=== PATIENT | male | born 1955 | race Caucasian/White ===

== ENCOUNTER 2019-06-29 13:41 | Outpatient (CLI) | payer BC, SELFPAY ==
--- NOTE | ~2019-06-29 | CT_ITS ---
EXAMINATION: CT lung screening DATE: 06/29/2019 14:07 INDICATION: Tobacco dependence TECHNIQUE: Computed tomography (CT) of the chest was performed without intravenous contrast. The dose -length product was 366.59 mGy-cm. Automated exposure control and iterative reconstruction technique were employed. COMPARISON: No prior studies for comparison. FINDINGS: There is bilateral lower lobe atelectasis/scarring. No endobronchial lesions. There is mild emphysema. No pulmonary nodules or masses. No significant pleural or pericardial effusion. Heart siz e is normal. No thoracic lymphadenopathy. There is atherosclerosis. Mild thoracic spondylosis. There is diffuse idiopathic skeletal hyperostosis (DISH) of the thoracic spine. IMPRESSION: 1. Lung-RADS category 1: Negative. Continue annual screening with noncontrast low-dose chest CT in 12 months. 2: Bilateral lower lobe atelectasis/scarring. 3: Mild emphysema. Reviewed, dictated and finalized at location A. IC DESIGNER IMPRESSION: 1. Lung-RADS category 1: Negative. Continue annual screening with noncontrast l ow-dose chest CT in 12 months. 2: Bilateral lower lobe atelectasis/scarring. 3: Mild emphysema.
== END 2019-06-29 13:42 | disposition home or self-care (01) ==
PROVIDERS: PCP Nurse Practitioner Adult Health; Visit Provider Nurse Practitioner Family
DX: J98.11 Atelectasis (principal); J43.9 Emphysema, unspecified; Z87.891 Personal history of nicotine dependence
CPT/HCPCS: G0297

== ENCOUNTER 2022-01-05 22:42 | Observation (INO) | payer MEDICARE, SELFPAY ==
[2022-01-05] VITALS (9 sets, daily range): BP systolic 179–184; BP diastolic 89–125; PULSE 76–84; RESP 17–24; TEMP 36.9; O2SAT 96–98
--- NOTE | ~2022-01-05 | CT_ITS ---
EXAMINATION: CTA chest PE protocol DATE: 01/06/2022 02:03 INDICATION: Acute hypoxia, tachypnea TECHNIQUE: Computed tomography angiography (CTA) of the chest was performed with 100 mL Omnipaque-350 intravenous contrast timed to evaluate the pulmonary arteries. Coronal maximum intensity projection 3D-reconstructions were created by the technologist. The dose-length product (DLP) was 763.69 mGy-cm. Automated exposure control and iterative reconstruction technique were employed. COMPARISON: 06/29/2019 FINDINGS: The pulmonary arteries are well-opacified. No pulmonary embolism is identified. There is mi ld emphysema. The lungs are free of acute opacities. No pleural effusion or pneumothorax. No patholog ically enlarged thoracic lymph nodes are identified. The heart size is normal. Healed right-sided rib fractures are noted. There is moderate thoracic spondylosis. IMPRESSION: 1. No pulmonary embolism or acute cardiopulmonary abnormality. Reviewed, dictated and finalized at location A.
--- NOTE | ~2022-01-05 | XR_ITS ---
EXAMINATION: XR chest 1V portable INDICATION: Shortness of breath TECHNIQUE: Portable AP chest at 0053 hours COMPARISON: None available FINDINGS: The lungs are free of acute opacities. No pleural effusion or pneumothorax. The cardiomedia stinal silhouette is normal. IMPRESSION: 1. No acute cardiopulmonary abnormality. Reviewed, dictated and finalized at location A.
--- NOTE | 2022-01-05 23:29 | ECG_ITS ---
Measurements Intervals [place] Rate: 78 P: 31 MI: 152 QRS: -3 QRSD: 103 T: 63 QT: 379 QTc: 434 Interpretive Statements SINUS RHYTHM WITH OCCASIONAL VENTRICULAR PREMATURE COMPLEXES ABNORMAL ECG NO PREVIOUS ECG AVAILABLE FOR COMPARISON Electronically Signed On 01-06-2022 10:05:44 CDT by Mitch Gaona M.D.
[2022-01-06] VITALS (36 sets, daily range): BP systolic 154–228; BP diastolic 65–112; PULSE 67–86; RESP 16–24; TEMP 35.9–36.6; O2SAT 91–99; BMI 38.6
--- NOTE | 2022-01-06 | ECHO_ITS ---
Patient Info Name: Michael Trammell Age: 66 years : 1955 Gender: Male Ht: 67 in Wt: 246 lbs BSA: 2.35 m2 HR: 78 bpm BP: 228 / 101 mmHg Heart Rhythm: Sinus Rhythm Technical Quality: Fair Exam Date: 01/06/2022 9:11 AM Exam Location: [facility] Pulmonary Exam Room: 232 Patient Status: Outpatient Admit Date: 01/06/2022 Staff Ordering Physician: Vincent Lind MD Silversmith Apprentice: Asha Valente RDCS Attending Provider: Vincent Lind MD Exam Type: CA echo dop color flow w con Study Info Indications - CHF Complete two-dimensional, color flow and Doppler transthoracic echocardiogram is performed with contrast to opacify the left ventricle and to improve the deliniation of the left ventricle endocardial borders. Contrast/Agitated Saline Contrast/Ag. Saline: Definity Amount: 2.00 ml Administered By: Asha Valente [facility] Existing IV Access: Yes IV Access Condition: patent with no signs of infiltration Summary 1. Left ventricular chamber dimension is mildly enlarged. 2. Left ventricular systolic function is normal, estimated at 60-65%. 3. There is mildly increased left ventricular wall thickness. 4. The left ventricular diastolic function is grade I diastolic dysfunction. 5. Left atrial chamber dimension is mildly enlarged. 6. There is mild tricuspid valve regurgitation. 7. Mild pulmonary hypertension, estimated pulmonary arterial systolic pressure is 35 mmHg. 8. There is mild pulmonic regurgitation. Left Ventricle Left ventricular chamber dimension is mildly enlarged. Left ventricular systolic function is normal, estimated at 60-65%. There is mildly increased left ventricular wall thickness. The left ventricular diastolic function is grade I diastolic dysfunction. Right Ventricle Right ventricular chamber dimension is normal. Right ventricular systolic function is normal. Left Atria Left atrial chamber dimension is mildly enlarged. Right Atria Right atrial chamber dimension is normal. Atrial Septum Intact interatrial septum visualized by color flow imaging. Aortic Valve The aortic valve is probable trileaflet. There is mild aortic valve sclerosis. There is no aortic valve stenosis. There is trace aortic valve regurgitation. Pulmonic Valve The pulmonic valve is normal. There is no pulmonic valve stenosis. There is mild pulmonic regurgitation. Mitral Valve The mitral valve has normal leaflets. There is no mitral valve stenosis. There is trace mitral valve regurgitation. Tricuspid Valve The tricuspid valve leaflets are normal. There is no significant tricuspid valve stenosis. There is mild tricuspid valve regurgitation. Mild pulmonary hypertension, estimated pulmonary arterial systolic pressure is 35 mmHg. Pericardium/Pleural The pericardium appears normal. There is no pericardial effusion. Inferior Vena Cava Normal inferior vena cava with >50% collapse upon inspiration consistent with normal right atrial pressure, 10 mmHg. Aorta The aortic root size at the sinus of Valsalva is normal. Left Ventricular Outflow Tract Name Value Normal LVOT 2D LVOT Diameter 2.09 cm
[2022-01-06 00:02] LABS: Basophils Absolute Auto 0.1 K/mm3 (0.0-0.1); Basophils Percent Auto 0.7 % (0.2-1.2); Eosinophils Absolute Auto 0.1 K/mm3 (0-0.3); Eosinophils Percent Auto 1.2 % (0-4.4); Hematocrit 46.4 % (42.0-52.0); Hemoglobin 14.6 g/dL (14.0-18.0); Immature Granulocyte Absolute 0.03 K/mm3 (0.00-0.031); Immature Granulocyte Percent A 0.3 % (0-0.5); Lymphocytes Absolute Auto 2.16 K/mm3 (0.9-3.2); Lymphocytes Percent Auto 20.2 % (18.3-44.2); Mean Corpuscular HGB Conc 31.5 g/dl (32-36); Mean Corpuscular Hemoglobin 29.3 pg (26-34); Mean Platelet Volume 10.6 fl (7.4-10.4); Monocytes Absolute Auto 0.9 K/mm3 (0.1-0.6); Neutrophils Absolute Auto 7.4 K/mm3 (1.3-6.7); Neutrophils Percent Auto 69.6 % (45.5-73.1); Platelet Count Result 272 k/mm3 (150-375); Red Blood Count 4.99 M/mm3 (4.6-6.20); Red Cell Distribution Width 14.5 % (11.5-14.5); White Blood Count 10.7 K/mm3 (4.5-10.0)
[2022-01-06 00:10] LABS: Alanine Aminotransferase 17 U/L (6-50); Albumin Level 4.2 g/dL (3.5-5.1); Alkaline Phosphatase 125 U/L (38-126); Anion Gap 6 mmol/L (8-16); Aspartate Amino Transferase 42 U/L (17-59); Bilirubin,Total 0.3 mg/dL (0.2-1.3); Blood Urea Nitrogen 28 mg/dL (9-20); Calcium 9.3 mg/dL (8.4-10.2); Carbon Dioxide 34 mmol/L (22-30); Chloride 99 mmol/L (98-107); Estimated CRCL calculation 57 ml/min; Estimated Glomerular Filt Rate 51; Glucose 184 mg/dL (65-110); Potassium 4.1 mmol/L (3.4-5.0); Sodium 139 mmol/L (137-145)
[2022-01-06 00:16] LABS: INR 0.9; Prothrombin Time 11.7 Seconds (11.1-14.7)
[2022-01-06 00:17] LABS: Partial Thromboplastin Time 29.8 SECONDS (22.3-36.8)
[2022-01-06 00:22] LABS: NT Pro B Type Natriuretic Pept 1010 pg/mL (5-100); Troponin I 0.021 ng/mL (0.000-0.034)
[2022-01-06 00:36] LABS: Appearance Urine Clear (Clear); Bilirubin Urine Negative (Negative); Blood Urine Trace-lysed (Negative); Color Urine Yellow (Yellow); Glucose Urine UA Trace mg/dL (Negative); Ketones Urine Negative (Negative); Leukocyte Esterase Ur Negative LEU/UL (Negative); Nitrate Urine Negative (Negative); Protein Urine 3+ mg/dL (Negative); Urobilinogen Urine 0.2 mg/dL (<2.0)
[2022-01-06 00:47] LABS: Bacteria Urine Trace /hpf; WBC Urine 0-3 /hpf
--- NOTE | 2022-01-06 00:59 | ED.SOB ---
HPI - SOB/Dyspnea General Chief Complaint: Shortness of Breath/Dyspnea Stated Complaint: SOB, HTN Time Seen by Provider: 01/05/22 23:25 Source: patient and EMS Mode of arrival: EMS Limitations: no limitations History of Present Illness HPI Narrative: Patient is a 66-year-old male who presents the ED via EMS with report of shortness of breath. Patient reports he saw his PCP on Saturday for his blood pressures being elevated. He takes carvedilol 12.5 mg twice daily as well as losartan/HCTZ. He also takes Lasix 20 mg daily. He was advised to double his carvedilol dosage today. He has been checking his blood pressures at home and notes they have been elevated up to the 190s systolic. Today, he reports he developed sudden onset of increased difficulty breathing. Worse with any type of exertion. He states he can usually walk around his house just fine without feeling short of breath, but could barely even walk to the bathroom today without feeling short of breath. He had to use his girlfriends home oxygen to provide relief. Patient denies any chest pain, recent cough or cold symptoms, fever, history of heart failure or CAD. Patient was given nebulizer treatment in route to the ED. Related Data Home Medications Medication Instructions Recorded Confirmed albuterol sulfate 90 mcg/actuation 1 inhalation inhalation Q4H 06/09/19 06/09/19 aerosol inhaler (ProAir HFA) aspirin 81 mg tablet,delayed 81 mg PO DAILY 06/09/19 06/09/19 release (Adult Aspirin Regimen) carvedilol 12.5 mg tablet (Coreg) 12.5 mg PO Q12H 06/09/19 06/09/19 furosemide 20 mg tablet (Lasix) 20 mg PO QAM 06/09/19 06/09/19 glimepiride 2 mg tablet (Amaryl) 2 mg PO QAM 06/09/19 06/09/19 insulin lispro 100 unit/mL 1 unit subcut ONCE 06/09/19 06/09/19 subcutaneous pen (Admelog SoloStar U-100 Insulin lispro) losartan 100 1 tablet PO DAILY 06/09/19 06/09/19 mg-hydrochlorothiazide 25 mg tablet (Hyzaar) metformin 1,000 mg tablet 1,000 mg PO DAILY 06/09/19 06/09/19 (Glucophage) mometasone-formoterol HFA 100 2 puff inhalation Q12H 06/09/19 06/09/19 mcg-5 mcg/actuation aerosol inhaler (Dulera) omega-3 fatty acids 1,000 mg 1,000 mg PO DAILY 06/09/19 06/09/19 capsule (Fish Oil Concentrate) pioglitazone 45 mg tablet (Actos) 45 mg PO DAILY 06/09/19 06/09/19 simvastatin 40 mg tablet (Zocor) 40 mg PO DAILY 06/09/19 06/09/19 sitagliptin 100 mg tablet (Januvia) 100 mg PO DAILY 06/09/19 06/09/19 Allergies Allergy/AdvReac Type Severity Reaction Status Date / Time No Known Allergies Allergy Verified 01/05/22 22:49 Review of Systems Review of Systems: CONSTITUTIONAL: Denies fever, chills, or sweats. ENT: Denies rhinorrhea, congestion, sore throat. CARDIOVASCULAR: Denies chest pain, palpitations, or edema. RESPIRATORY: Reports dyspnea, VILLA. Denies cough. GASTROINTESTINAL: Denies abdominal pain, nausea, vomiting, or diarrhea. All systems reviewed & are unremarkable except as noted in HPI and below PMFSH Past Medical History Medical History Diabetes 1.5, managed as type 2 Dyslipidemia Essential hypertension LIAM (obstructive sleep apnea) Surgical History Surgical History No pertinent past surgical history Family History Family History (System 07/03/19 @ 14:08 by Janice Patel) Mother Family history of malignant neoplasm, Onset Age: 37 Father Family history of pulmonary embolism, Onset Age: 42 Social History Social History Smoking status: Former smoker Exam Narrative: GENERAL: Well appearing, obese, non-toxic, in no acute distress. HEAD: Normocephalic, atraumatic. NECK: Supple. No adenopathy, no masses. RESPIRATORY: Airway patent, respirations mildly labored. Clear to auscultation bilaterally, no rales, rhonchi, wheezing. Mild d
[2022-01-06 01:05] LABS: Add Urine Microscopic? YES
[2022-01-06 01:11] LABS: SARS-CoV-2 RNA PCR Negative
[2022-01-06 03:25] LABS: Troponin I 0.085 ng/mL (0.000-0.034)
--- NOTE | 2022-01-06 05:02 | PC.NURSE ---
This patient, Michael Trammell, was admitted to IMU Room 232-01. Patient/family oriented to hospital policies and general routines including ID bracelet, bed and alarms, visiting hours, pain management, procedures, bathroom and other care routines, personal items, smoking policy, room service/diet, and visiting hours. Information on how to activate the Rapid Response Team has been discussed. Patient/Family are encouraged to report perceived risks to care and to ask questions if they do not understand what they are told or what they should do.
[2022-01-06] MEDS: hydrALAZINE HCL 20 MG/ML VIAL 10 MG IV PUSH (06:30)
[2022-01-06 06:39] LABS: Troponin I 0.092 ng/mL (0.000-0.034)
[2022-01-06 07:45] LABS: Glucose Point of Care 196 mg/dl (65-105)
--- NOTE | 2022-01-06 08:11 | PM.IMHP ---
H&P: HPI History of Present Illness Date/Time: 01/06/22 08:11 Chief Complaint: shortness of breath Narrative: this is a 66-year-old male who presents to the ED via EMS with shortness of breath. He states that he went to see his PCP last week where he was found to have elevated blood pressure. He had double the dose of carvedilol since then however the blood pressure has been elevated even with it. Yesterday he was felt surgeon onset of difficulty breathing which worsen with exertion and came to the ED for evaluation. He reports he was wheezing some but no change in cough or quality of consistency of his sputum. He denies any increased leg swelling. He was unable to even walk to the bathroom without getting short of breath. He also used his girlfriend's home oxygen to get some relief. He denies any chest pain. Denies any fever. Denies any nausea or vomiting. He was given nebulizer treatment in route to the ED. He was noted to be hypertensive Gruen arrival to the ED and was also hypoxic at 88% on room air at rest. He was placed on oxygen supplementation via nasal cannula. A chest x-ray was negative and CTA was done which came back negative for any PE. His empirically suggestive of congestive heart failure and pulmonary vascular congestion and hence was admitted for further evaluation and management. he does have underlying COPD that he see pulmonary for. Review of Systems Review of Systems: - CONSTITUTIONAL: Denies weight loss, fever and chills. - HEENT: Denies changes in vision and hearing - RESPIRATORY: Reports SOB and denies cough. - CV: Denies palpitations and CP. - GI: Denies abdominal pain, nausea, vomiting and diarrhea. - : Denies dysuria and urinary frequency. - MSK: Denies myalgia and joint pain. - SKIN: Denies rash and pruritus. - NEUROLOGICAL: Denies headache and syncope. - PSYCHIATRIC: Denies recent changes in mood. Denies anxiety and depression. [facility] Past Medical History Medical History Diabetes 1.5, managed as type 2 Dyslipidemia Essential hypertension LIAM (obstructive sleep apnea) Surgical History Surgical History No pertinent past surgical history Family History Family History Mother Family history of malignant neoplasm, Onset Age: 37 Father Family history of pulmonary embolism, Onset Age: 42 Social History Social History Smoking packs per day: 1.5 Smoking cigarettes per day: 30.0 Years smoked: 20 Smoking pack-years: 30.00 Smoking status: Former smoker Tobacco type: cigarettes Second hand tobacco smoke exposure: No Alcohol intake: current Drinks per week: 12 Substance use: current Substance use type: marijuana Last use: 01/03/22 Spiritual care concerns: No Meds Home Medications and Allergies Home Medications Medication Instructions Recorded Confirmed Type albuterol sulfate 90 mcg/actuation 1 inhalation inhalation Q4H PRN 06/09/19 01/06/22 History aerosol inhaler (ProAir HFA) Shortness Of Breath Or Wheezing aspirin 81 mg tablet,delayed 81 mg PO DAILY 06/09/19 01/06/22 History release (Adult Aspirin Regimen) carvedilol 12.5 mg tablet (Coreg) 12.5 mg PO Q12H 06/09/19 01/06/22 History furosemide 20 mg tablet (Lasix) 20 mg PO QAM 06/09/19 01/06/22 History losartan 100 1 tablet PO DAILY 06/09/19 01/06/22 History mg-hydrochlorothiazide 25 mg tablet (Hyzaar) metformin 1,000 mg tablet 1,000 mg PO BID 06/09/19 01/06/22 History (Glucophage) omega-3 fatty acids 1,000 mg 1,000 mg PO DAILY 06/09/19 01/06/22 History capsule (Fish Oil Concentrate) simvastatin 40 mg tablet (Zocor) 40 mg PO DAILY 06/09/19 01/06/22 History buspirone 5 mg tablet 5 mg PO TID 01/06/22 01/06/22 Hi
[2022-01-06] MEDS: ASPIRIN 81 MG CHEWABLE TABLET 324 MG PO (08:48)
[2022-01-06] MEDS: FUROSEMIDE INJ 40 MG/4 ML VIAL 60 MG IV PUSH (08:49)
[2022-01-06] MEDS: PERFLUTREN LIPID MICROSPHERES 1.5 ML VIAL DILUTED TO 10 ML TOTAL VOLUME IV PUSH (09:00)
[2022-01-06 09:39] LABS: Troponin I 0.069 ng/mL (0.000-0.034)
[2022-01-06] MEDS: carvediloL 12.5 MG TABLET PO (10:38)
[2022-01-06] MEDS: busPIRone HCL 5 MG TABLET PO (10:39)
[2022-01-06] MEDS: OMEGA 3 POLYUNSAT FATTY ACIDS 1 GM CAP PO (10:39)
[2022-01-06] MEDS: LORATADINE 10 MG TABLET PO (10:39)
[2022-01-06] MEDS: CITALOPRAM HYDROBROMIDE 10 MG TABLET PO (10:40)
[2022-01-06] MEDS: POTASSIUM CHLORIDE 10 MEQ TABLET.ER PO (10:40)
[2022-01-06] MEDS: ENOXAPARIN 40 MG/0.4 ML SYRINGE SUB-Q (10:41)
[2022-01-06] MEDS: hydroCHLOROthiazide 25 MG TABLET PO (10:43)
[2022-01-06] MEDS: LOSARTAN POTASSIUM 100 MG TABLET PO (10:43)
[2022-01-06 11:35] LABS: Glucose Point of Care 242 mg/dl (65-105)
[2022-01-06] MEDS: INSULIN GLARGINE (*BKC) 100 UNITS/ML 30 UNITS SUB-Q ×2 (12:24→20:49)
[2022-01-06] MEDS: ALBUTEROL SULFATE NEB 2.5 MG/3 ML INH INHALATION ×2 (13:38→20:25)
[2022-01-06] MEDS: IPRATROPIUM BR 0.02% INH SOLN 0.5 MG/2.5 ML VIAL INHALATION ×2 (13:38→20:25)
[2022-01-06] MEDS: methylPREDNISolone SOD SUCC 125 MG VIAL 40 MG IV PUSH ×2 (14:44→22:09)
--- NOTE | 2022-01-06 16:21 | PM.CNCAR ---
Assessment and Plan Assessment and plan (1) Elevated troponin: Code(s): R77.8 - Other specified abnormalities of plasma proteins Status: Acute Assessment and Plan: Likely related to marked hypertension. Unlikely from an ACS from plaque rupture. Eventual ischemic evaluation though it is recommended (2) Acute exacerbation of CHF (congestive heart failure): Qualifiers: Heart failure type: diastolic Qualified Code(s): I50.33 - Acute on chronic diastolic (congestive) heart failure Code(s): I50.9 - Heart failure, unspecified Status: Acute Assessment and Plan: Likely from marked hypertension and hypertensive crisis. 2D echocardiogram with Doppler be ordered and reviewed. Will increase his carvedilol to 25 mg p.o. b.i.d.. Continue his other regimen. If need be, could add spironolactone if renal function will tolerate. Depending on echocardiogram, could also consider adding amlodipine. (3) Acute respiratory failure with hypoxia: Code(s): J96.01 - Acute respiratory failure with hypoxia Status: Acute Assessment and Plan: Related to marked hypertension. Improved with furosemide (4) Hypertensive urgency: Code(s): I16.0 - Hypertensive urgency Status: Acute Assessment and Plan: As above. Will increase carvedilol. Continue other regimen. (5) LIAM (obstructive sleep apnea): Code(s): G47.33 - Obstructive sleep apnea (adult) (pediatric) Status: Acute Assessment and Plan: Needs treated as this may also be an etiology of his high blood pressure (6) Essential hypertension: Code(s): I10 - Essential (primary) hypertension Status: Acute Assessment and Plan: Uncontrolled with plan as above (7) Dyslipidemia: Code(s): E78.5 - Hyperlipidemia, unspecified Status: Acute (8) Diabetes 1.5, managed as type 2: Code(s): E13.9 - Other specified diabetes mellitus without complications Status: Acute Assessment and Plan: Per hospitalist (9) Former smoker: Code(s): Z87.891 - Personal history of nicotine dependence Status: Acute History of Present Illness History of Present Illness Consult date/time: 01/06/22 16:21 Requesting physician: Vincent Lind MD Consult reason: Other (Elevated troponin, CHF) Reason For Visit: Acute respiratory failurew with hypoxia Narrative: Reason for consultation: Elevated troponin, CHF Requesting provider: Dr. Lind Date of service 01/06/2022 History patient is a 66-year-old male who has been dealing with some high blood pressure. He had a stress test in 2019 which was normal. Echocardiogram 2019 showed ejection fraction 60 65% with mild LVH and mild left ventricular enlargement. He does have high blood pressure which has been difficult to control as of late. He talk to his primary care provider who did increase his carvedilol to 25 mg p.o. b.i.d. but his blood pressure was still elevated. Yesterday he started developed severe onset of acute shortness of breath. It progressed to the point that he came to the hospital. Blood pressure peaked at 228/112. His oxygen levels were 88% on room air. He was started on nasal cannula. CT scan of chest was negative and CT angiogram did not reveal any pulmonary embolism. BNP was mildly elevated at a little over 1000. Troponins were negative and slightly trended positive. Cardiology consultation was requested further evaluation. Patient denies any chest pain, syncope, presyncope, paroxysmal nocturnal dyspnea, orthopnea, edema or palpitations. Review of Systems Review of Systems: All systems reviewed & are unremarkable except as noted in HPI and below Constitutional: Constitutional: Denies body ache(s) Eyes: Eyes: Denies blurry vision ENT: Reports Normal hearing present Cardiovascular: Cardiovascular: Denies chest pain Respiratory: Respiratory: Reports dyspnea and Reports dyspnea on exertio
[2022-01-06 16:24] LABS: Glucose Point of Care 220 mg/dl (65-105)
[2022-01-06 20:06] LABS: Glucose Point of Care 353 mg/dl (65-105)
[2022-01-06] MEDS: FLUTICASONE/SALMETEROL 115-21 MCG INHALER 1 PUFF 2 PUFF INHALATION (20:27)
[2022-01-06] MEDS: SIMVASTATIN 20 MG TABLET 40 MG PO ×2 (20:49→21:01)
[2022-01-06] MEDS: carvediloL 25 MG TABLET PO (20:49)
[2022-01-06 22:22] LABS: Glucose Point of Care 323 mg/dl (65-105)
[2022-01-06] MEDS: INSULIN ASPART (*BKC) 100 UNITS/ML 6 UNITS SUB-Q (22:50)
[2022-01-07] VITALS (22 sets, daily range): BP systolic 146–210; BP diastolic 63–85; PULSE 70–87; RESP 16–22; TEMP 36.4–36.8; O2SAT 94–96
[2022-01-07] MEDS: ALBUTEROL SULFATE NEB 2.5 MG/3 ML INH INHALATION ×4 (03:20→20:35)
[2022-01-07] MEDS: hydrALAZINE HCL 20 MG/ML VIAL 10 MG IV PUSH ×2 (04:40→21:50)
[2022-01-07 04:42] LABS: Basophils Percent Auto 0.2 % (0.2-1.2); Hematocrit 46.3 % (42.0-52.0); Hemoglobin 14.9 g/dL (14.0-18.0); Immature Granulocyte Absolute 0.04 K/mm3 (0.00-0.031); Immature Granulocyte Percent A 0.4 % (0-0.5); Lymphocytes Absolute Auto 1.18 K/mm3 (0.9-3.2); Lymphocytes Percent Auto 12.2 % (18.3-44.2); Mean Corpuscular HGB Conc 32.2 g/dl (32-36); Mean Corpuscular Hemoglobin 29.1 pg (26-34); Mean Corpuscular Volume 90.4 fl (80-100); Mean Platelet Volume 10.3 fl (7.4-10.4); Monocytes Absolute Auto 0.1 K/mm3 (0.1-0.6); Monocytes Percent Auto 1.1 % (2.6-8.5); Neutrophils Absolute Auto 8.3 K/mm3 (1.3-6.7); Neutrophils Percent Auto 86.1 % (45.5-73.1); Platelet Count Result 268 k/mm3 (150-375); Red Blood Count 5.12 M/mm3 (4.6-6.20); Red Cell Distribution Width 14.1 % (11.5-14.5); White Blood Count 9.7 K/mm3 (4.5-10.0)
[2022-01-07 04:46] LABS: Glucose Point of Care 237 mg/dl (65-105)
[2022-01-07 05:06] LABS: Alanine Aminotransferase 14 U/L (6-50); Albumin Level 3.7 g/dL (3.5-5.1); Alkaline Phosphatase 116 U/L (38-126); Anion Gap 9 mmol/L (8-16); Aspartate Amino Transferase 29 U/L (17-59); Bilirubin,Total 0.4 mg/dL (0.2-1.3); Blood Urea Nitrogen 31 mg/dL (9-20); Carbon Dioxide 31 mmol/L (22-30); Chloride 98 mmol/L (98-107); Estimated CRCL calculation 49 ml/min; Estimated Glomerular Filt Rate 44; Glucose 240 mg/dL (65-110); Magnesium 2.1 mg/dL (1.6-2.3); Potassium 4.4 mmol/L (3.4-5.0); Sodium 138 mmol/L (137-145)
[2022-01-07] MEDS: methylPREDNISolone SOD SUCC 125 MG VIAL 40 MG IV PUSH (05:27)
[2022-01-07] MEDS: IPRATROPIUM BR 0.02% INH SOLN 0.5 MG/2.5 ML VIAL INHALATION ×3 (07:26→20:35)
[2022-01-07] MEDS: FLUTICASONE/SALMETEROL 115-21 MCG INHALER 1 PUFF 2 PUFF INHALATION ×2 (07:26→20:35)
[2022-01-07 08:21] LABS: Glucose Point of Care 291 mg/dl (65-105)
[2022-01-07] MEDS: busPIRone HCL 5 MG TABLET PO (08:38)
[2022-01-07] MEDS: OMEGA 3 POLYUNSAT FATTY ACIDS 1 GM CAP PO (08:38)
[2022-01-07] MEDS: LORATADINE 10 MG TABLET PO (08:39)
[2022-01-07] MEDS: POTASSIUM CHLORIDE 10 MEQ TABLET.ER PO (08:39)
[2022-01-07] MEDS: carvediloL 25 MG TABLET PO ×2 (08:40→21:49)
[2022-01-07] MEDS: CITALOPRAM HYDROBROMIDE 10 MG TABLET PO (08:40)
[2022-01-07] MEDS: LOSARTAN POTASSIUM 100 MG TABLET PO (08:41)
[2022-01-07] MEDS: ENOXAPARIN 40 MG/0.4 ML SYRINGE SUB-Q (08:42)
[2022-01-07] MEDS: hydroCHLOROthiazide 25 MG TABLET PO (08:42)
[2022-01-07] MEDS: INSULIN GLARGINE (*BKC) 100 UNITS/ML 30 UNITS SUB-Q ×2 (08:46→17:12)
[2022-01-07] MEDS: INSULIN ASPART (*BKC) 100 UNITS/ML SUB-Q ×3 (08:48→17:12)
--- NOTE | 2022-01-07 10:04 | PM.PNCARD ---
Progress Note: A&P Assessment and Plan (1) Elevated troponin: Code(s): R77.8 - Other specified abnormalities of plasma proteins Status: Acute Assessment and Plan: Likely related to marked hypertension. Unlikely from an ACS from plaque rupture. Eventual ischemic evaluation though is recommended (2) Acute exacerbation of CHF (congestive heart failure): Qualifiers: Heart failure type: diastolic Qualified Code(s): I50.33 - Acute on chronic diastolic (congestive) heart failure Code(s): I50.9 - Heart failure, unspecified Status: Acute Assessment and Plan: Likely from marked hypertension and hypertensive crisis. (3) Acute respiratory failure with hypoxia: Code(s): J96.01 - Acute respiratory failure with hypoxia Status: Acute Assessment and Plan: Related to marked hypertension. Improved (4) Hypertensive urgency: Code(s): I16.0 - Hypertensive urgency Status: Acute Assessment and Plan: As above. Continue current regimen but will add amlodipine 5 mg daily and up titrate as needed (5) LIAM (obstructive sleep apnea): Code(s): G47.33 - Obstructive sleep apnea (adult) (pediatric) Status: Acute Assessment and Plan: Needs treated as this may also be an etiology of his high blood pressure (6) Essential hypertension: Code(s): I10 - Essential (primary) hypertension Status: Acute Assessment and Plan: Uncontrolled with plan as above (7) Dyslipidemia: Code(s): E78.5 - Hyperlipidemia, unspecified Status: Acute (8) Diabetes 1.5, managed as type 2: Code(s): E13.9 - Other specified diabetes mellitus without complications Status: Acute Assessment and Plan: Per hospitalist (9) Former smoker: Code(s): Z87.891 - Personal history of nicotine dependence Status: Acute Subjective Date/time seen: 01/07/22 10:04 Interval history: 66-year-old admitted for hypertensive crisis and shortness of breath/heart failure which is diastolic and acute Date of service 01/07/2022: Feels much better today. No chest pain, shortness of breath, syncope Review of Systems Review of Systems: All systems reviewed & are unremarkable except as noted in HPI and below Constitutional: Constitutional: Denies body ache(s) and Denies excessive sweating Eyes: Eyes: Denies blurry vision ENT: Reports Normal hearing present Cardiovascular: Cardiovascular: Denies chest pain, Reports dyspnea and Reports dyspnea on exertion Respiratory: Respiratory: Reports dyspnea and Reports dyspnea on exertion Gastrointestinal: Gastrointestinal: Denies abdominal pain Genitourinary: Genitourinary: Denies hematuria Musculoskeletal: Musculoskeletal: Denies myalgias Integumentary/Breasts: Skin/Breast: Denies dry skin Neurologic: Reports Normal hearing present, Denies Abnormal speech present and Denies confusion Psychiatric: Psychiatric: Denies anxiety and Denies confusion Endocrine: Endocrine: Denies excessive sweating Hematologic/Lymphatic: Hematologic/Lymphatic: Denies easy bleeding Allergic/Immunologic: Allergic/Immunologic: Denies GI upset with certain foods Exam Narrative: Awake alert oriented appears stated age Const: General: comfortable and no acute distress; No confusion Orientation/consciousness: No confusion HENMT: Ears: TM's normal bilaterally General nose exam: Normal nares present Eyes: Sclera: sclerae normal EOM: EOMs intact bilaterally Neck: Neck: supple Thyroid: thyroid normal Carotids: no bruits Chest: Other: No reproducible chest wall pain to palpation Resp: Effort & Inspection: normal respiratory effort Auscultation: clear to auscultation bilaterally Cardio: Rate: regular rate Rhythm: regular rhythm Heart sounds: no murmurs GI: Inspection: non-distended Auscultation: normal bowel sounds Skin: General skin exam: normal color Neuro: General: No gait no
--- NOTE | 2022-01-07 12:05 | PM.IMPN ---
Progress Note: A&P Assessment and Plan (1) Acute respiratory failure with hypoxia: Code(s): J96.01 - Acute respiratory failure with hypoxia Status: Acute (2) Acute exacerbation of CHF (congestive heart failure): Qualifiers: Heart failure type: diastolic Qualified Code(s): I50.33 - Acute on chronic diastolic (congestive) heart failure Code(s): I50.9 - Heart failure, unspecified Status: Acute (3) Essential hypertension: Code(s): I10 - Essential (primary) hypertension Status: Acute (4) Dyslipidemia: Code(s): E78.5 - Hyperlipidemia, unspecified Status: Acute (5) Diabetes 1.5, managed as type 2: Code(s): E13.9 - Other specified diabetes mellitus without complications Status: Acute (6) Hypertensive urgency: Code(s): I16.0 - Hypertensive urgency Status: Acute (7) LIAM (obstructive sleep apnea): Code(s): G47.33 - Obstructive sleep apnea (adult) (pediatric) Status: Acute (8) COPD exacerbation: Code(s): J44.1 - Chronic obstructive pulmonary disease with (acute) exacerbation Status: Acute Plan 66-year-old male presented via EMS with worsening shortness of breath on exertion and elevated blood pressure. # shortness of breath: Chest x-ray negative CTA is negative for PE. He is hypertensive which is likely the reason for his shortness of breath. He also possible COPD exacerbation as 1 of the other etiology. He did improve with nebulizer treatment in route coming to the ED. CHF exacerbation another possibility. Continue treatment for COPD exacerbation. Creatinine bumped up. Unlikely she has CHF exacerbation # hypertensive urgency 181/115 upon arrival. IV hydralazine p.r.n.. Resume his usual home medication. Received a dose of Lasix 01/06/2022. Blood pressure fluctuating but improved. Cardiology added on amlodipine. Also on losartan hydrochlorothiazide carvedilol at home. #Acute hypoxic respiratory failure oxygen saturation dropped to 88% on room air at rest. Continue nasal cannula oxygen supplementation. No prior history of CHF but takes Lasix 20 mg daily. BNP was 1010. Echo from 2019 with ejection fraction 60-65% but diastolic dysfunction present. EKG with no ischemic changes. Initial troponin is negative. COVID is negative. Chest x-ray reported as no acute cardiopulmonary abnormality.. CTA done negative for PE. BNP was elevated. Troponin 2nd set came back elevated. Likely related to hypertensive urgency rather than plaque rupture. Reports no chest pain. Cardiology has been consulted for further evaluation on this. Will get an echocardiogram. Will give aspirin 325 mg and continue on aspirin 81 mg daily. Will also treat for COPD exacerbation with steroid watching his blood pressure carefully while on steroid. Currently off oxygen # acute on chronic diastolic congestive heart failure ejection fraction 60-65% back from 2019. Recheck echo with normal ejection fraction 60-65%. Grade 1 diastolic dysfunction. Mild pulmonary hypertension. # JUAN DANIEL: Baseline creatinine from 2019 was 0.8. Current creatinine of 1.4. Bumped up to 1.6 01/07. No further diuresis. # elevated troponin Initial troponin negative 2nd set bumped to 0.085. No chest pain reported. EKG with no ischemic changes.could be related to CHF . cardiology consultation # diabetes mellitus type 2 on insulin. Insulin protocol basal bolus hold OHA. Adjust insulin dose # hyperlipidemia # COPD on Dulera and albuterol at home. # DVT prophylaxis Lovenox # code status full code Subjective Date/time seen: 01/07/22 12:05 Interval history: HPI: This is a 66-year-old male who presents to the ED via EMS with shortness of breath.? He states that he went to see his PCP last week where he was found to have elevated blood pressure.? He had double the dose of carvedilol since then however the blood pressure has been elevated even with it.? Yesterday he was
[2022-01-07 12:09] LABS: Glucose Point of Care 381 mg/dl (65-105)
[2022-01-07] MEDS: amLODIPine BESYLATE 5 MG TABLET PO (12:31)
[2022-01-07 17:08] LABS: Glucose Point of Care 378 mg/dl (65-105)
[2022-01-07] MEDS: methylPREDNISolone SOD SUCC 40 MG VIAL IV PUSH (21:50)
[2022-01-07] MEDS: SIMVASTATIN 20 MG TABLET 40 MG PO (21:50)
[2022-01-07 22:01] LABS: Glucose Point of Care 274 mg/dl (65-105)
[2022-01-08] VITALS (15 sets, daily range): BP systolic 127–182; BP diastolic 53–76; PULSE 62–82; RESP 18–20; TEMP 36.3–36.7; O2SAT 96–98
[2022-01-08] MEDS: IPRATROPIUM BR 0.02% INH SOLN 0.5 MG/2.5 ML VIAL INHALATION ×4 (02:42→20:53)
[2022-01-08] MEDS: ALBUTEROL SULFATE NEB 2.5 MG/3 ML INH INHALATION ×4 (02:42→20:53)
[2022-01-08 05:33] LABS: Basophils Percent Auto 0.1 % (0.2-1.2); Hematocrit 40.8 % (42.0-52.0); Hemoglobin 13.2 g/dL (14.0-18.0); Immature Granulocyte Absolute 0.07 K/mm3 (0.00-0.031); Immature Granulocyte Percent A 0.5 % (0-0.5); Lymphocytes Absolute Auto 0.98 K/mm3 (0.9-3.2); Lymphocytes Percent Auto 6.5 % (18.3-44.2); Mean Corpuscular HGB Conc 32.4 g/dl (32-36); Mean Corpuscular Hemoglobin 29.2 pg (26-34); Mean Corpuscular Volume 90.3 fl (80-100); Mean Platelet Volume 10.8 fl (7.4-10.4); Monocytes Absolute Auto 0.4 K/mm3 (0.1-0.6); Monocytes Percent Auto 2.4 % (2.6-8.5); Neutrophils Absolute Auto 13.7 K/mm3 (1.3-6.7); Neutrophils Percent Auto 90.5 % (45.5-73.1); Platelet Count Result 263 k/mm3 (150-375); Red Blood Count 4.52 M/mm3 (4.6-6.20); Red Cell Distribution Width 14.4 % (11.5-14.5); White Blood Count 15.1 K/mm3 (4.5-10.0)
[2022-01-08 05:47] LABS: Alanine Aminotransferase 14 U/L (6-50); Albumin Level 3.3 g/dL (3.5-5.1); Alkaline Phosphatase 91 U/L (38-126); Anion Gap 11 mmol/L (8-16); Aspartate Amino Transferase 23 U/L (17-59); Bilirubin,Total 0.3 mg/dL (0.2-1.3); Blood Urea Nitrogen 54 mg/dL (9-20); Calcium 8.4 mg/dL (8.4-10.2); Carbon Dioxide 28 mmol/L (22-30); Chloride 95 mmol/L (98-107); Estimated CRCL calculation 47 ml/min; Estimated Glomerular Filt Rate 41; Glucose 246 mg/dL (65-110); Magnesium 2.2 mg/dL (1.6-2.3); Sodium 134 mmol/L (137-145)
[2022-01-08] MEDS: FLUTICASONE/SALMETEROL 115-21 MCG INHALER 1 PUFF 2 PUFF INHALATION ×2 (08:16→20:53)
[2022-01-08] MEDS: INSULIN ASPART (*BKC) 100 UNITS/ML SUB-Q ×3 (08:42→17:00)
[2022-01-08] MEDS: INSULIN GLARGINE (*BKC) 100 UNITS/ML 30 UNITS SUB-Q ×2 (08:42→17:01)
[2022-01-08 08:43] LABS: Glucose Point of Care 229 mg/dl (65-105)
[2022-01-08] MEDS: OMEGA 3 POLYUNSAT FATTY ACIDS 1 GM CAP PO (08:45)
[2022-01-08] MEDS: busPIRone HCL 5 MG TABLET PO ×2 (08:45→12:16)
[2022-01-08] MEDS: ENOXAPARIN 40 MG/0.4 ML SYRINGE SUB-Q (08:45)
[2022-01-08] MEDS: POTASSIUM CHLORIDE 10 MEQ TABLET.ER PO (08:45)
[2022-01-08] MEDS: CITALOPRAM HYDROBROMIDE 10 MG TABLET PO (08:46)
[2022-01-08] MEDS: LOSARTAN POTASSIUM 100 MG TABLET PO (08:46)
[2022-01-08] MEDS: LORATADINE 10 MG TABLET PO (08:46)
[2022-01-08] MEDS: amLODIPine BESYLATE 5 MG TABLET PO (08:46)
[2022-01-08] MEDS: carvediloL 25 MG TABLET PO ×2 (08:46→20:21)
[2022-01-08] MEDS: methylPREDNISolone SOD SUCC 40 MG VIAL IV PUSH (08:47)
[2022-01-08] MEDS: hydroCHLOROthiazide 25 MG TABLET PO (08:47)
[2022-01-08] MEDS: ASPIRIN 81 MG ENTERIC TABLET PO (08:47)
--- NOTE | 2022-01-08 09:31 | PM.PNCARD ---
Progress Note: A&P Assessment and Plan (1) Elevated troponin: Code(s): R77.8 - Other specified abnormalities of plasma proteins Status: Acute Assessment and Plan: Likely related to marked hypertension. Unlikely from an ACS from plaque rupture. Eventual ischemic evaluation though is recommended. Edwar defer to Dr. Chinchilla who has followed this patient as an outpatient in the past. Patient plans to follow up with him. (2) Acute exacerbation of CHF (congestive heart failure): Qualifiers: Heart failure type: diastolic Qualified Code(s): I50.33 - Acute on chronic diastolic (congestive) heart failure Code(s): I50.9 - Heart failure, unspecified Status: Acute Assessment and Plan: Likely from marked hypertension and hypertensive crisis. (3) Acute respiratory failure with hypoxia: Code(s): J96.01 - Acute respiratory failure with hypoxia Status: Acute Assessment and Plan: Related to marked hypertension. Improved (4) Hypertensive urgency: Code(s): I16.0 - Hypertensive urgency Status: Acute Assessment and Plan: As above. Improved. Continue current regimen. (5) LIAM (obstructive sleep apnea): Code(s): G47.33 - Obstructive sleep apnea (adult) (pediatric) Status: Acute Assessment and Plan: Needs treated as this may also be an etiology of his high blood pressure (6) Essential hypertension: Code(s): I10 - Essential (primary) hypertension Status: Acute Assessment and Plan: Improving. Continue current medical regimen (7) Dyslipidemia: Code(s): E78.5 - Hyperlipidemia, unspecified Status: Acute (8) Diabetes 1.5, managed as type 2: Code(s): E13.9 - Other specified diabetes mellitus without complications Status: Acute Assessment and Plan: Per hospitalist (9) Former smoker: Code(s): Z87.891 - Personal history of nicotine dependence Status: Acute Subjective Date/time seen: 01/08/22 09:31 Cardiology follow up for hypertensive urgency Feeling well this morning. He does not have any chest pain, shortness of breath. No swelling. Review of Systems Review of Systems: All systems reviewed & are unremarkable except as noted in HPI and below Constitutional: Constitutional: Denies body ache(s) and Denies excessive sweating Eyes: Eyes: Denies blurry vision ENT: Reports Normal hearing present Cardiovascular: Cardiovascular: Denies chest pain, Reports dyspnea and Reports dyspnea on exertion Respiratory: Respiratory: Reports dyspnea and Reports dyspnea on exertion Gastrointestinal: Gastrointestinal: Denies abdominal pain Genitourinary: Genitourinary: Denies hematuria Musculoskeletal: Musculoskeletal: Denies myalgias Integumentary/Breasts: Skin/Breast: Denies dry skin Neurologic: Reports Normal hearing present, Denies Abnormal speech present and Denies confusion Psychiatric: Psychiatric: Denies anxiety and Denies confusion Endocrine: Endocrine: Denies excessive sweating Hematologic/Lymphatic: Hematologic/Lymphatic: Denies easy bleeding Allergic/Immunologic: Allergic/Immunologic: Denies GI upset with certain foods Exam Narrative: Awake alert oriented appears stated age Const: General: comfortable and no acute distress; No confusion Orientation/consciousness: No confusion HENMT: Ears: TM's normal bilaterally General nose exam: Normal nares present Eyes: Sclera: sclerae normal EOM: EOMs intact bilaterally Neck: Neck: supple Thyroid: thyroid normal Carotids: no bruits Chest: Other: No reproducible chest wall pain to palpation Resp: Effort & Inspection: normal respiratory effort Auscultation: clear to auscultation bilaterally Cardio: Rate: regular rate Rhythm: regular rhythm Heart sounds: no murmurs GI: Inspection: non-distended Auscultation: normal bowel sounds Skin: General skin exam: normal color Neuro: General: No gait
--- NOTE | 2022-01-08 09:54 | PM.IMPN ---
Progress Note: A&P Assessment and Plan (1) Acute respiratory failure with hypoxia: Code(s): J96.01 - Acute respiratory failure with hypoxia Status: Acute (2) Acute exacerbation of CHF (congestive heart failure): Qualifiers: Heart failure type: diastolic Qualified Code(s): I50.33 - Acute on chronic diastolic (congestive) heart failure Code(s): I50.9 - Heart failure, unspecified Status: Acute (3) Essential hypertension: Code(s): I10 - Essential (primary) hypertension Status: Acute (4) Dyslipidemia: Code(s): E78.5 - Hyperlipidemia, unspecified Status: Acute (5) Diabetes 1.5, managed as type 2: Code(s): E13.9 - Other specified diabetes mellitus without complications Status: Acute (6) Hypertensive urgency: Code(s): I16.0 - Hypertensive urgency Status: Acute (7) LIAM (obstructive sleep apnea): Code(s): G47.33 - Obstructive sleep apnea (adult) (pediatric) Status: Acute (8) COPD exacerbation: Code(s): J44.1 - Chronic obstructive pulmonary disease with (acute) exacerbation Status: Acute Plan 66-year-old male presented via EMS with worsening shortness of breath on exertion and elevated blood pressure. # shortness of breath: Chest x-ray negative CTA is negative for PE. He is hypertensive which is likely the reason for his shortness of breath. He also possible COPD exacerbation as 1 of the other etiology. He did improve with nebulizer treatment in route coming to the ED. CHF exacerbation another possibility. Continue treatment for COPD exacerbation. Creatinine bumped up. Unlikely she has CHF exacerbation # hypertensive urgency 181/115 upon arrival. IV hydralazine p.r.n.. Resume his usual home medication. Received a dose of Lasix 01/06/2022. Blood pressure fluctuating but improved. Cardiology added on amlodipine. Also on losartan hydrochlorothiazide carvedilol at home. Much improved today #Acute hypoxic respiratory failure oxygen saturation dropped to 88% on room air at rest. Continue nasal cannula oxygen supplementation. No prior history of CHF but takes Lasix 20 mg daily. BNP was 1010. Echo from 2019 with ejection fraction 60-65% but diastolic dysfunction present. EKG with no ischemic changes. Initial troponin is negative. COVID is negative. Chest x-ray reported as no acute cardiopulmonary abnormality.. CTA done negative for PE. BNP was elevated. Troponin 2nd set came back elevated. Likely related to hypertensive urgency rather than plaque rupture. Reports no chest pain. Cardiology has been consulted for further evaluation on this. Will get an echocardiogram. Will give aspirin 325 mg and continue on aspirin 81 mg daily. Will also treat for COPD exacerbation with steroid watching his blood pressure carefully while on steroid. Currently off oxygen. Change steroids to oral # acute on chronic diastolic congestive heart failure ejection fraction 60-65% back from 2019. Recheck echo with normal ejection fraction 60-65%. Grade 1 diastolic dysfunction. Mild pulmonary hypertension. # JUAN DANIEL: Baseline creatinine from 2019 was 0.8. Current creatinine of 1.4. Bumped up to 1.6 01/07. No further diuresis. Creatinine continues to increase to 1.7 today # elevated troponin Initial troponin negative 2nd set bumped to 0.085. No chest pain reported. EKG with no ischemic changes.could be related to CHF . cardiology consultation # diabetes mellitus type 2 on insulin. Insulin protocol basal bolus hold OHA. Adjust insulin dose # hyperlipidemia # COPD on Dulera and albuterol at home. # DVT prophylaxis Lovenox # code status full code Leukocytosis likely related to steroid. Creatinine slightly up today will recheck in a.m.. DC in a.m. if stable follow-up with cardiology in on outpatient basis for ischemic evaluation Subjective Date/time seen: 01/08/22 09:54 Interval history: HPI: This is a 66-year-old
[2022-01-08 12:06] LABS: Glucose Point of Care 263 mg/dl (65-105)
[2022-01-08 16:54] LABS: Glucose Point of Care 329 mg/dl (65-105)
[2022-01-08] MEDS: hydrALAZINE HCL 20 MG/ML VIAL 10 MG IV PUSH (20:22)
[2022-01-08] MEDS: SIMVASTATIN 20 MG TABLET 40 MG PO (20:24)
[2022-01-08 21:03] LABS: Glucose Point of Care 368 mg/dl (65-105)
[2022-01-09] VITALS (10 sets, daily range): BP systolic 123–156; BP diastolic 49–87; PULSE 63–78; RESP 14–20; TEMP 36.3–36.6; O2SAT 98–100
[2022-01-09] MEDS: IPRATROPIUM BR 0.02% INH SOLN 0.5 MG/2.5 ML VIAL INHALATION ×3 (02:02→14:02)
[2022-01-09] MEDS: ALBUTEROL SULFATE NEB 2.5 MG/3 ML INH INHALATION ×3 (02:02→14:02)
[2022-01-09 05:12] LABS: Basophils Percent Auto 0.1 % (0.2-1.2); Hematocrit 39.5 % (42.0-52.0); Hemoglobin 12.8 g/dL (14.0-18.0); Immature Granulocyte Absolute 0.06 K/mm3 (0.00-0.031); Immature Granulocyte Percent A 0.4 % (0-0.5); Lymphocytes Absolute Auto 1.62 K/mm3 (0.9-3.2); Lymphocytes Percent Auto 11.2 % (18.3-44.2); Mean Corpuscular HGB Conc 32.4 g/dl (32-36); Mean Corpuscular Hemoglobin 29.4 pg (26-34); Mean Corpuscular Volume 90.8 fl (80-100); Mean Platelet Volume 10.5 fl (7.4-10.4); Monocytes Absolute Auto 1.1 K/mm3 (0.1-0.6); Monocytes Percent Auto 7.8 % (2.6-8.5); Neutrophils Absolute Auto 11.7 K/mm3 (1.3-6.7); Neutrophils Percent Auto 80.5 % (45.5-73.1); Platelet Count Result 249 k/mm3 (150-375); Red Blood Count 4.35 M/mm3 (4.6-6.20); Red Cell Distribution Width 14.5 % (11.5-14.5); White Blood Count 14.5 K/mm3 (4.5-10.0)
[2022-01-09 05:33] LABS: Alanine Aminotransferase 14 U/L (6-50); Albumin Level 3.3 g/dL (3.5-5.1); Alkaline Phosphatase 79 U/L (38-126); Anion Gap 2 mmol/L (8-16); Aspartate Amino Transferase 26 U/L (17-59); Bilirubin,Total 0.2 mg/dL (0.2-1.3); Blood Urea Nitrogen 62 mg/dL (9-20); Calcium 7.9 mg/dL (8.4-10.2); Carbon Dioxide 30 mmol/L (22-30); Chloride 96 mmol/L (98-107); Estimated CRCL calculation 49 ml/min; Estimated Glomerular Filt Rate 44; Glucose 198 mg/dL (65-110); Magnesium 2.4 mg/dL (1.6-2.3); Potassium 3.7 mmol/L (3.4-5.0); Sodium 128 mmol/L (137-145)
[2022-01-09 08:21] LABS: Glucose Point of Care 128 mg/dl (65-105)
[2022-01-09] MEDS: LOSARTAN POTASSIUM 100 MG TABLET PO (08:23)
[2022-01-09] MEDS: POTASSIUM CHLORIDE 10 MEQ TABLET.ER PO (08:23)
[2022-01-09] MEDS: hydroCHLOROthiazide 25 MG TABLET PO (08:23)
[2022-01-09] MEDS: busPIRone HCL 5 MG TABLET PO ×2 (08:23→12:19)
[2022-01-09] MEDS: predniSONE 20 MG TABLET 40 MG PO (08:24)
[2022-01-09] MEDS: amLODIPine BESYLATE 5 MG TABLET PO (08:24)
[2022-01-09] MEDS: carvediloL 25 MG TABLET PO (08:24)
[2022-01-09] MEDS: LORATADINE 10 MG TABLET PO (08:25)
[2022-01-09] MEDS: ENOXAPARIN 40 MG/0.4 ML SYRINGE SUB-Q (08:25)
[2022-01-09] MEDS: CITALOPRAM HYDROBROMIDE 10 MG TABLET PO (08:25)
[2022-01-09] MEDS: ASPIRIN 81 MG ENTERIC TABLET PO (08:25)
[2022-01-09] MEDS: OMEGA 3 POLYUNSAT FATTY ACIDS 1 GM CAP PO (08:25)
[2022-01-09] MEDS: INSULIN GLARGINE (*BKC) 100 UNITS/ML 30 UNITS SUB-Q (08:26)
[2022-01-09] MEDS: FLUTICASONE/SALMETEROL 115-21 MCG INHALER 1 PUFF 2 PUFF INHALATION (08:45)
[2022-01-09 12:04] LABS: Glucose Point of Care 195 mg/dl (65-105)
--- NOTE | 2022-01-09 13:36 | PM.DS ---
DS: Admitting Diagnosis Discharge Date 01/09/2022 Admitting Diagnosis Shortness of breath DS: Discharge Diagnosis Discharge Diagnosis (1) Acute respiratory failure with hypoxia: Code(s): J96.01 - Acute respiratory failure with hypoxia Status: Acute (2) Acute exacerbation of CHF (congestive heart failure): Qualifiers: Heart failure type: diastolic Qualified Code(s): I50.33 - Acute on chronic diastolic (congestive) heart failure Code(s): I50.9 - Heart failure, unspecified Status: Acute (3) Essential hypertension: Code(s): I10 - Essential (primary) hypertension Status: Acute (4) Dyslipidemia: Code(s): E78.5 - Hyperlipidemia, unspecified Status: Acute (5) Diabetes 1.5, managed as type 2: Code(s): E13.9 - Other specified diabetes mellitus without complications Status: Acute (6) Hypertensive urgency: Code(s): I16.0 - Hypertensive urgency Status: Acute (7) LIAM (obstructive sleep apnea): Code(s): G47.33 - Obstructive sleep apnea (adult) (pediatric) Status: Acute (8) COPD exacerbation: Code(s): J44.1 - Chronic obstructive pulmonary disease with (acute) exacerbation Status: Acute DS: Summary Hospital Course Hospital Course: 66-year-old male presented via EMS with worsening shortness of breath on exertion and elevated blood pressure. # shortness of breath: Chest x-ray negative CTA is negative for PE. He is hypertensive which is likely the reason for his shortness of breath. He also possible COPD exacerbation as 1 of the other etiology. He Does report that he was exposed to dust just prior to the symptom onset. He did improve with nebulizer treatment in route coming to the ED. CHF exacerbation another possibility. Continue treatment for COPD exacerbation. Creatinine bumped up with diuresis with no swelling and thus Unlikely he has CHF exacerbation # hypertensive urgency 181/115 upon arrival. IV hydralazine p.r.n.. Resume his usual home medication. Received a dose of Lasix 01/06/2022. Blood pressure fluctuating but improved. Cardiology added on amlodipine. Also on losartan hydrochlorothiazide carvedilol at home. Much improved with this regimen. Discharge with amlodipine 5 mg at home #Acute hypoxic respiratory failure oxygen saturation dropped to 88% on room air at rest. Continue nasal cannula oxygen supplementation. No prior history of CHF but takes Lasix 20 mg daily. BNP was 1010. Echo from 2019 with ejection fraction 60-65% but diastolic dysfunction present. EKG with no ischemic changes. Initial troponin is negative. COVID is negative. Chest x-ray reported as no acute cardiopulmonary abnormality.. CTA done negative for PE. BNP was elevated. Troponin 2nd set came back elevated. Likely related to hypertensive urgency rather than plaque rupture. Reports no chest pain. Cardiology has been consulted for further evaluation on this. Will get an echocardiogram. Will give aspirin 325 mg and continue on aspirin 81 mg daily. Will also treat for COPD exacerbation with steroid watching his blood pressure carefully while on steroid. Currently off oxygen. Change steroids to oral and taper as needed # acute on chronic diastolic congestive heart failure ejection fraction 60-65% back from 2019. Recheck echo with normal ejection fraction 60-65%. Grade 1 diastolic dysfunction. Mild pulmonary hypertension. # JUAN DANIEL: Baseline creatinine from 2019 was 0.8. Current creatinine of 1.4. Bumped up to 1.6 01/07. No further diuresis. Creatinine continues to increase to 1.7 then remains stable # elevated troponin Initial troponin negative 2nd set bumped to 0.085. No chest pain reported. EKG with no ischemic changes.could be related to CHF . cardiology consultation. Follow-up with Dr. Chinchilla as outpatient basis # diabetes mellitus type 2 on insulin. Insulin protocol basal bolus hold OHA. Adjust insulin dose # hyperlipide
--- NOTE | 2022-01-09 14:57 | PC.NURSE ---
On 01/09/22, the license pending RN Dominique Mendenhall, provided care and completed [employer] documentation on this patient. I have reviewed her documentation and agree with the findings.
== END 2022-01-09 14:06 | disposition home or self-care (01) ==
LOC: ANHED 01-06 03:16 → ANHTRC 01-06 04:45 → ANHIMU 01-06 05:01 → ANH2MED 01-07 14:02
PROVIDERS: Physician Assistant; Admitting Provider Internal Medicine; Emergency Provider Emergency Medicine; PCP Nurse Practitioner Family; Visit Provider Internal Medicine
DX: J96.01 Acute respiratory failure with hypoxia (principal); I16.0 Hypertensive urgency; I11.0 Hypertensive heart disease with heart failure; I50.33 Acute on chronic diastolic (congestive) heart failure; E78.5 Hyperlipidemia, unspecified; E13.9 Other specified diabetes mellitus without complications; G47.33 Obstructive sleep apnea (adult) (pediatric); J44.1 Chronic obstructive pulmonary disease with (acute) exacerbation; I49.3 Ventricular premature depolarization; I36.1 Nonrheumatic tricuspid (valve) insufficiency; I37.1 Nonrheumatic pulmonary valve insufficiency; I27.20 Pulmonary hypertension, unspecified; R77.8 Other specified abnormalities of plasma proteins; E66.9 Obesity, unspecified; N17.9 Acute kidney failure, unspecified; Z20.822 Contact with and (suspected) exposure to COVID-19; Z87.891 Personal history of nicotine dependence; F12.90 Cannabis use, unspecified, uncomplicated; Z68.37 Body mass index [BMI] 37.0-37.9, adult; Z79.51 Long term (current) use of inhaled steroids; Z79.82 Long term (current) use of aspirin; Z79.84 Long term (current) use of oral hypoglycemic drugs; Z79.4 Long term (current) use of insulin; Z79.899 Other long term (current) drug therapy; Z80.9 Family history of malignant neoplasm, unspecified; Z84.89 Family history of other specified conditions
CPT/HCPCS: 36415; 71045; 71275; 80053; 81001; 82948; 83735; 83880; 84484; 85025; 85610; 85730; 93005; 94640; 96372; 96374; 96375; 96376; 99285; A9270; C8929; C9803; G0378; J0360; J1650; J1815; J1940; J2920; J2930; J7512; Q9957; Q9967; U0003; U0005

== ENCOUNTER 2024-11-09 01:12 | Day surgery (SDC) | payer MEDICARE, SELFPAY ==
[2024-10-22 09:31] VITALS: BMI 33.5
[2024-11-09 12:19] VITALS: BP 165/69; PULSE 61; RESP 17; TEMP 36.9; O2SAT 100; BMI 33.3
[2024-11-09] MEDS: LACTATED RINGERS 1,000 ML 150 ML IV CONT (12:30)
[2024-11-09 12:32] LABS: Glucose Point of Care 99 mg/dl (65-105)
--- NOTE | 2024-11-09 13:11 | P.PNAN_ITS ---
Anes - Initial Pre Proc Eval Procedure: Operation Date: 11/09/24 13:00 Proposed Procedures p Screening Colonoscopy - Papo Desai MD Date/Time: 11/09/24 13:11 Surgeon: Papo Desai MD Pre Op Diagnosis: Encounter for screening for malignant neoplasm of Patient Data Age: 69 Gender: M Height: 1.7 m Weight: 96.7 kg Last Vital Signs Temp 36.9 C 11/09/24 12:19 Pulse 61 11/09/24 12:19 Resp 17 11/09/24 12:19 BP 165/69 H 11/09/24 12:19 Pulse Ox 100 11/09/24 12:19 O2 Del Method Room Air 11/09/24 12:19 Allergies Allergy/AdvReac Type Severity Reaction Status Date / Time No Known Allergies Allergy Verified 11/09/24 12:18 Home Medications ?Medication ?Instructions ?Recorded ?Confirmed ?Type albuterol sulfate 90 mcg/actuation 1 inhalation inhalation Q4H PRN 06/09/19 10/22/24 History aerosol inhaler (ProAir HFA) Shortness Of Breath Or Wheezing furosemide 20 mg tablet (Lasix) 20 mg PO QAM 06/09/19 10/22/24 History losartan 100 1 tablet PO DAILY 06/09/19 10/22/24 History mg-hydrochlorothiazide 25 mg tablet (Hyzaar) metformin 1,000 mg tablet 1,000 mg PO BID 06/09/19 10/22/24 History (Glucophage) omega-3 fatty acids 1,000 mg 1,000 mg PO DAILY 06/09/19 10/22/24 History capsule (Fish Oil Concentrate) buspirone 5 mg tablet 5 mg PO TID 01/06/22 10/22/24 History citalopram 10 mg tablet 10 mg PO DAILY 01/06/22 10/22/24 History fluticasone 250 mcg-salmeterol 50 1 inh inhalation BID 01/06/22 01/25/22 History mcg/dose blistr powdr for inhalation gabapentin 100 mg capsule 300 mg PO DAILY Cramps 01/06/22 10/22/24 History insulin degludec 200 unit/mL (3 30 unit subcut BID 01/06/22 10/22/24 History mL) subcutaneous pen (Tresiba FlexTouch U-200 insulin) loratadine 10 mg tablet 10 mg PO DAILY 01/06/22 10/22/24 History carvedilol 12.5 mg tablet (Coreg) 25 mg PO BID 01/25/22 11/09/24 History pravastatin 40 mg tablet See Rx Instructions .Route 12/06/23 10/22/24 Rx .COMPLEX #90 tabs amlodipine 10 mg tablet See Rx Instructions .Route 02/05/24 10/22/24 Rx .COMPLEX #90 tabs dulaglutide 4.5 mg/0.5 mL 4.5 mg subcut WEEKLY 10/22/24 10/22/24 History subcutaneous pen injector (Trulicity) hydralazine 25 mg tablet 25 mg PO TID 10/22/24 10/22/24 History Laboratory Tests 11/09/24 12:24 POC Capillary Glucose 99 mg/dl (65-105) Patient hx anesthesia problems: none Family hx anesthesia problems: none Results Review: All pre-operative results and documents have been reviewed as part of the pre- operative evaluation. [facility] Past Medical History Medical History LIAM (obstructive sleep apnea) Essential hypertension Dyslipidemia Diabetes 1.5, managed as type 2 Surgical History Surgical History No pertinent past surgical history Family History Family History Mother Family history of malignant neoplasm, Onset Age: 37 Father Family history of pulmonary embolism, Onset Age: 42 Social History Social History Smoking packs per day: 1.5 Smoking cigarettes per day: 30.0 Years smoked: 40 Smoking pack-years: 60.00 Smoking status: Former smoker Tobacco type: cigarettes Second hand tobacco smoke exposure: No Alcohol intake: current Drinks per week: 2 Alcohol use details: Occasionally Substance use: current Substance use type: marijuana Last use: yesterday Living arrangements: with family Spiritual care concerns: No Anes - Eval Final PreProcedure Day of Procedure 11/09/24 13:11 Patient weight: obese Heart: regular rate and rhythm Lungs: clear to auscultation Airway: Mallampati scale class II and special considerations poor dentition Neurological: alert and oriented Last oral intake: >/= 8 hours ASA classification: III Emergent: no Anesthetic plan: proceed Anesthesia type and monitoring: general GIVS and standard monitoring Results Review: All pre-operative results and documents have been reviewed as part of the pre- operative evaluation. Informed Consent: The patient's anesthetic plan and its attendant risks and benefits were discussed with the patient/family/POA. Questions were solicited and answers provided to the satisfaction of the patient/family/POA.
--- NOTE | 2024-11-09 13:44 | PM.IMHP ---
H&P: HPI History of Present Illness Date/Time: 11/09/24 13:44 Chief Complaint: history of colon polyps Narrative: The patient has a history of colonic polyps, the last colonoscopy was approximately 5 years ago. Review of Systems Review of Systems: All systems reviewed & are unremarkable except as noted in HPI and below PMFSH Past Medical History Medical History LIAM (obstructive sleep apnea) Essential hypertension Dyslipidemia Diabetes 1.5, managed as type 2 Surgical History Surgical History No pertinent past surgical history Family History Family History Mother Family history of malignant neoplasm, Onset Age: 37 Father Family history of pulmonary embolism, Onset Age: 42 Social History Social History Smoking packs per day: 1.5 Smoking cigarettes per day: 30.0 Years smoked: 40 Smoking pack-years: 60.00 Smoking status: Former smoker Tobacco type: cigarettes Second hand tobacco smoke exposure: No Alcohol intake: current Drinks per week: 2 Alcohol use details: Occasionally Substance use: current Substance use type: marijuana Last use: yesterday Living arrangements: with family Spiritual care concerns: No Meds Home Medications and Allergies Home Medications ?Medication ?Instructions ?Recorded ?Confirmed ?Type albuterol sulfate 90 mcg/actuation 1 inhalation inhalation Q4H PRN 06/09/19 10/22/24 History aerosol inhaler (ProAir HFA) Shortness Of Breath Or Wheezing furosemide 20 mg tablet (Lasix) 20 mg PO QAM 06/09/19 10/22/24 History losartan 100 1 tablet PO DAILY 06/09/19 10/22/24 History mg-hydrochlorothiazide 25 mg tablet (Hyzaar) metformin 1,000 mg tablet 1,000 mg PO BID 06/09/19 10/22/24 History (Glucophage) omega-3 fatty acids 1,000 mg 1,000 mg PO DAILY 06/09/19 10/22/24 History capsule (Fish Oil Concentrate) buspirone 5 mg tablet 5 mg PO TID 01/06/22 10/22/24 History citalopram 10 mg tablet 10 mg PO DAILY 01/06/22 10/22/24 History fluticasone 250 mcg-salmeterol 50 1 inh inhalation BID 01/06/22 01/25/22 History mcg/dose blistr powdr for inhalation gabapentin 100 mg capsule 300 mg PO DAILY Cramps 01/06/22 10/22/24 History insulin degludec 200 unit/mL (3 30 unit subcut BID 01/06/22 10/22/24 History mL) subcutaneous pen (Tresiba FlexTouch U-200 insulin) loratadine 10 mg tablet 10 mg PO DAILY 01/06/22 10/22/24 History carvedilol 12.5 mg tablet (Coreg) 25 mg PO BID 01/25/22 11/09/24 History pravastatin 40 mg tablet See Rx Instructions .Route 12/06/23 10/22/24 Rx .COMPLEX #90 tabs amlodipine 10 mg tablet See Rx Instructions .Route 02/05/24 10/22/24 Rx .COMPLEX #90 tabs dulaglutide 4.5 mg/0.5 mL 4.5 mg subcut WEEKLY 10/22/24 10/22/24 History subcutaneous pen injector (Trulicity) hydralazine 25 mg tablet 25 mg PO TID 10/22/24 10/22/24 History Allergies Allergy/AdvReac Type Severity Reaction Status Date / Time No Known Allergies Allergy Verified 11/09/24 12:18 Vital Signs Vital Signs - 24 hr 11/09/24 12:19 Temperature 98.5 F Pulse Rate 61 Respiratory Rate 17 Blood Pressure 165/69 H Pulse Oximetry 100 Oxygen Delivery Room Air Exam Const: General: cooperative and healthy appearing Resp: Effort & Inspection: normal respiratory effort and able to speak in complete sentences Auscultation: clear to auscultation bilaterally Cardio: Rate: regular rate Rhythm: regular rhythm GI: Inspection: normal to inspection GI Palp: No No hepatosplenomegaly present Auscultation: normal bowel sounds Rectal Exam: deferred Skin: General skin exam: normal color Psych: Appearance: grossly normal Mental Status: mental status grossly normal Assessment and Plan Assessment and plan (1) History of colonic polyps: Code(s): Z86.0100 - Personal history of colon polyps, unspecified Status: Acute Assessment and Plan: The patient is deemed a good candidate for the procedure. Consent signed. Will proceed.
[2024-11-09 14:09] VITALS: BP 134/65; PULSE 72; RESP 23; O2SAT 98
--- NOTE | 2024-11-09 14:09 | S_PTH ---
PATIENT: Michael Trammell LOC: [facility] U#:[id number] AGE/SX: 69/M ROOM: RE11/09/[address]: Papo Desai MD : [id number] BED: DIS: 11/09/2024 SPEC #: [id number] RECD: 11/10/24 08:19 STATUS: MARILOU REQ #: [id number] IMTIAZ: 11/09/24 14:[address]: Papo Desai DEPT: [facility] Surgical RECD BY: Carly Anthony ENTERED: 11/10/24 08:19 SP TYPE: Surgical OTHR DR: Mona Galloway, ACTIVITIES ASSISTANT Tissues: A - Colon Polypectomy B - Colon Polypectomy Procedures: Hematoxylin and Eosin Stain Gross and Microscopic Level 4
[2024-11-09 14:19] VITALS: BP 142/62; PULSE 68; RESP 17; O2SAT 96
[2024-11-09 14:29] VITALS: BP 145/64; PULSE 67; RESP 20; O2SAT 98
[2024-11-09 14:39] LABS: Glucose Point of Care 87 mg/dl (65-105)
== END 2024-11-09 15:05 | disposition home or self-care (01) ==
PROVIDERS: PCP Nurse Practitioner Family; Referring Provider Nurse Practitioner Family; Visit Provider Internal Medicine Gastroenterology
PROC: 0DJD8ZZ Inspection of Lower Intestinal Tract, Via Natural or Artificial Opening Endoscopic (ICD-10-PCS; CPT 45378; principal; 2024-11-09 13:00)
DX: Z12.11 Encounter for screening for malignant neoplasm of colon (principal); D12.2 Benign neoplasm of ascending colon; D12.3 Benign neoplasm of transverse colon; K57.30 Diverticulosis of large intestine without perforation or abscess without bleeding; E13.9 Other specified diabetes mellitus without complications; Z87.891 Personal history of nicotine dependence; F12.90 Cannabis use, unspecified, uncomplicated; E66.9 Obesity, unspecified; Z68.33 Body mass index [BMI] 33.0-33.9, adult
CPT/HCPCS: 45385; 82948; 88305; J2704; J7120